=== PATIENT | female | born 1960 | race Caucasian/White ===

== ENCOUNTER 2017-01-07 06:32 | Inpatient (IN) ==
[2017-01-07] MEDS ORDERED: ZOFRAN IV ONE (06:53)
[2017-01-07] MEDS ORDERED: APRESOLINE IV ONE (06:54)
[2017-01-07] MEDS ORDERED: DUONEB (A & A) INH ONE (07:03)
[2017-01-07 07:05] LABS: BASO% 0.5 % (0.0-0.8); EOS# 0.02 X1000 (0.0-0.7); EOS% 0.2 % (0.0-10.0); HEMATOCRIT 36.1 % (37.0-47.0); HEMOGLOBIN 11.8 g/dL (12.0-16.0); IMM GRAN# 0.04 X1000 (0.0-0.04); IMM GRAN% 0.3 % (0.0-0.5); LYMPH# 0.54 X1000 (1.2-3.4); LYMPH% 4.5 % (20.5-51.1); MANUAL DIFF NEEDED? NO; MCH 32.2 PG (27-31); MCHC 32.7 g/dL (33-37); MCV 98.4 FL (81-99); MONO# 0.36 X1000 (0.11-0.59); MPV 10.3 FL (7.4-10.4); NEUT% 91.5 % (42.2-75.2); PLT 260 X1000 (130-400); RBC 3.67 XMIL (4.2-5.4)
--- NOTE | 2017-01-07 07:13 | PROVIDER DOCUMENTATION ---
HPI-Abdominal Pain/GI Problem - General Chief Complaint: Nausea/Vomiting Stated Complaint: unsteady gait Time Seen by Provider: 01/07/17 06:34 Source: patient, family Allergies/Adverse Reactions: Patient Allergies Allergy/AdvReac Type Severity Reaction Status Date / Time No Known Allergies Allergy Verified 01/07/17 06:56 Home Medications: Home Medication List Medication Instructions Recorded Confirmed Last Taken Type LISINOpril [Prinivil] 40 mg PO DAILY 05/04/13 01/07/17 01/06/17 History Losartan [Cozaar] 100 mg PO DAILY 05/04/13 01/07/17 01/06/17 History Clonidine [Catapres] 1 tab PO BID 01/07/17 01/07/17 01/06/17 History Nifedipine [Procardia Xl] 30 mg PO DAILY 01/07/17 01/07/17 01/06/17 History Sevelamer Carbonate [Renvela] 800 mg PO TID 01/07/17 01/07/17 01/06/17 History - History of Present Illness-ABD Nature of Presenting Problems: Nausea, vomiting since 3 AM this morning. Pt went to dialysis center and was sent to ER because unsteady gait. Reports SOB and nauseated. BP is high but O2 sat is low in high 80s with 2-3 L NC. Denies F/C/DMII. Pt has been on HD since 4 years ago, Abdominal Pain Onset Location: reports: other (No pain) Pain Radiation: reports: no radiation Quality of Pain: reports: none Severity in ED: reports: moderate Onset/Duration: reports: last night Timing: reports: still present Activities at Onset: reports: none Modifying Factors: improves with: nothing Associated Symptoms: reports: nausea, vomiting, weakness, trouble walking. denies: chest pain, constipation, cough, diaphoresis, diarrhea, headaches Last BM: unsure Dark Stools Present?: reports: none noticed Rectal Bleeding: reports: none Rectal Pain: reports: none # of Vomiting Episodes: 10 Emesis Description: reports: none Bruising or Bleeding Gums?: No Similar Symptoms Previously?: No Recently seen or treated by another doctor?: No Review of Systems - Adult - REVIEW OF SYSTEMS - ADULT Constitutional: reports: no symptoms reported Eyes: reports: no symptoms reported Ears, Nose, Mouth & Throat: reports: no symptoms reported Cardiovascular: reports: no symptoms reported. denies: chest pain, irregular heart rate Respiratory: reports: see HPI, shortness of breath. denies: cough, dyspnea on exertion, pleurisy, wheezing Gastrointestinal: reports: no symptoms reported Genitourinary: reports: no symptoms reported Musculoskeletal: reports: no symptoms reported Integumentary: reports: no symptoms reported Neurological: reports: no symptoms reported Psychiatric: reports: no symptoms reported Endocrine: reports: no symptoms reported Hematologic/Lymphatic: reports: no symptoms reported Allergic/Immunologic: reports: no symptoms reported All Other Systems: Reviewed and Negative Past History - Adult - PAST MEDICAL HISTORY-ADULT Review of Records: reports: Old Records Reviewed, Nursing Assessment Review, Medications Reviewed, Social history reviewed & non-contributory. Physical Exam-General - PHYSICAL EXAM-ADULT Initial Vital Signs Reviewed: Yes - CONSTITUTIONAL General Appearance: alert, no apparent distress, lethargic, other (But cooperative for the exam and answers questions). negative: combative - EYES Eyes: PERRL/EOMI, pink conjunctivae - HEAD, EARS, NOSE, MOUTH & THROAT HENMT: normocephalic/atraumatic, moist mucous membranes - NECK Neck: non-tender, full range of motion - RESPIRATORY Respiratory: chest non-tender, lungs clear, normal breath sounds, no pleuratic chest pain, no respiratory distress, no accessory muscle use. negative: crackles, rales, rhonchi, wheezing, dull on percussion, decreased rate, increased rate - CARDIOVASCULAR Cardiovascular: normal peripheral pulses, regular rate, rhythm - GASTROINTESTINAL (ABDOMEN) Abdominal Exam: normal bowel sounds, non tender, soft, no organomegaly - MUSCULOSKELETAL Back Exam: normal inspection, no CVA tenderness, no vertebral tenderness Extremity: normal range of motion, non-tender, normal inspection, no pedal edema , no calf tenderness. negative: swelling, tenderness - SKIN Integumentary: normal color, normal turgor, warm/dry - NEUROLOGIC Neurologic: no motor/sensory deficits - PSYCHIATRIC Psych/Mental Status: normal mood/affect, normal thought content, normal thought process, oriented x 3 Progress - PLAN OF CARE/RESULTS Progress/Plan/Lab Results: Vital Signs - 8 hr 01/07/17 06:45 Temperature 97.4 F L Pulse Rate 75 Respiratory Rate 18 Blood Pressure 217/102 O2 Sat by Pulse Oximetry 94 L Laboratory Results - last 24 hr 01/07/17 06:45 WBC 11.92 H RBC 3.67 L Hgb 11.8 L Hct 36.1 L MCV 98.4 MCH 32.2 H MCHC 32.7 L RDW Std Deviation 18.2 H Plt Count 260 MPV 10.3 Immature Gran % (Auto) 0.3 Neut % (Auto) 91.5 H Lymph % (Auto) 4.5 L [place] % (Auto) 3.0 Eos % (Auto) 0.2 Baso % (Auto) 0.5 Immature Gran # (Auto) 0.04 Neut # (Auto) 10.90 H Lymph # (Auto) 0.54 L [place] # (Auto) 0.36 Eos # (Auto) 0.02 Baso # (Auto) 0.06 Orders Category Date Time Status Saline Loc DIRECTED Care 01/07/17 06:54 Active NPO Diet 01/07/17 06:54 Active flat [FLAT/UPRIGHT ABD/1 VIEW CHEST] [RAD] Stat Exams 01/07/17 07:03 Ordered ABG [RESP] Routine Lab 01/07/17 07:03 Ordered AMYLASE [CHEM] Stat Lab 01/07/17 06:45 Received CBC WITH ELECTRONIC DIFF [HEME] Stat Lab 01/07/17 06:45 Completed COMPREHENSIVE METABOLIC PANEL [CHEM] Stat Lab 01/07/17 06:45 Received LIPASE [CHEM] Stat Lab 01/07/17 06:45 Received MAGNESIUM [CHEM] Stat Lab 01/07/17 06:45 Received TROPONIN T Stat Lab 01/07/17 07:07 Uncollected URINALYSIS W/POSS RFLX CULT-1 [URINALYSIS] Stat Lab 01/07/17 06:54 Uncollected Albuterol 2.5MG/Ipratrop 0.5MG [Duoneb (A & A)] Med 01/07/17 07:03 Discontinued 3 ml INH NOW ONE Hydralazine [Apresoline] Med 01/07/17 06:54 Discontinued 20 mg IV NOW ONE Ondansetron [Zofran] Med 01/07/17 06:53 Discontinued 8 mg IV NOW ONE Aerosol Treatments Routine Oth 01/07/17 07:04 Active Aerosol Treatments Stat Oth 01/07/17 07:04 Active Result Diagrams: 01/07/17 06:45 01/07/17 06:45 - REASSESSMENT Reassessment #1 Time Reassessed: 07:14 Status: unchanged (SO2=high 80s on 2L NS. Increased to 4 L and called RT for ABG and breathing tx. SO2 increased to 97% on 4L.) - EKG 1 EKG Interpretation (*Must complete 3 of following elements*): Abnormal Rate: 70 Rhythm: NSR [place]: normal QRS: normal [place] Interval: normal - CONSULTS/PCP/HOSPITALIST Notification Time Discussed: :27 Reason/Comments: Admit to Dr. Dennison Consult Disposition: Admit Departure - Departure Time of Disposition Decision: 08:27 DIAGNOSIS: Hypertensive urgency, Nausea & vomiting Chest pain Qualifiers: Chest pain type: unspecified Qualified Code(s): R07.9 - Chest pain, unspecified Disposition: ADMITTED INPATIENT 09 Certified Medical Emergency: Emergent Condition: Stable Referrals and Follow-Ups: Muna Mares [Primary Care Provider] - - Critical Care Note This patient required my direct & personal management of CC.: No
[2017-01-07 07:24] LABS: ALBUMIN 4.3 g/dL (3.5-5.0); POTASSIUM 4.8 mmol/L (3.5-5.1); TOTAL BILIRUBIN 0.38 mg/dL (0.20-1.00)
[2017-01-07 07:29] LABS: ALLEN TEST YES; BE 7.9 mmoll (-3.0-3.0); BLOOD TYPE ARTERIAL; DRAW SITE R RADIAL; PCO2(98.6) 49 mmHg (35-45); PO2(98.6) 73 mmHg (60-100); SAMPLE BLOOD; SAO2 94.1 % (95.0-100.0); THB 11.6 g/dL (11.5-17.4); pH(98.6) 7.44 (7.35-7.45)
[2017-01-07 07:30] LABS: MODALITY CANNULA
--- NOTE | 2017-01-07 07:36 | EKG Report ---
Test Performed on : 01/07/2017 07:17:41 AM Test Reason : SOB Blood Pressure : / mmHG Vent. Rate : 070 BPM Atrial Rate : 070 BPM P-R Int : 180 ms QRS Dur : 098 ms QT Int : 464 ms P-R-T Axes : 068 -14 080 degrees QTc Int : 501 ms Normal sinus rhythm. with sinus arrhythmia. Possible Left atrial enlargement ST \T\ T wave abnormality, consider lateral ischemia Prolonged QT Abnormal ECG When compared with ECG of 10-SEP-2011 13:46, T wave inversion now evident in Anterior leads Unconfirmed Result
[2017-01-07] MEDS ORDERED: NITROGLYCERIN SL PRN (08:11)
[2017-01-07] MEDS ORDERED: NITROGLYCERIN ONE (08:12)
[2017-01-07] MEDS ORDERED: LABETALOL IV ONE (08:25)
[2017-01-07] MEDS: CARDENE 20 MG/NS 20 MG/200 ML PIGGYBACK IV SCH ×4 (09:18→21:20)
[2017-01-07 09:21] LABS: HEMOGLOBIN A1C 6.1 % (4.8-6.0)
--- NOTE | 2017-01-07 09:24 | Diag Imaging Result Document ---
PROCEDURE NAME: FLAT/UPRIGHT ABD/1 VIEW CHEST - 01/07/2017 FRONTAL CHEST X-RAY AND 2 VIEWS OF THE ABDOMEN, 01/07/2017: COMPARISON: 09/10/2011. FINDINGS: There is significant cardiomegaly and pulmonary vascular congestion. There is some early interstitial pulmonary edema as seen by Fito B-lines, primarily on the right side. No pneumothorax or significant effusion. No bowel obstruction or free air. There is some sort of irregular density projecting over the right sacral wing, indeterminate. IMPRESSION: 1. Cardiomegaly and pulmonary edema. 2. Indeterminate dense object projecting over the right sacral wing.
[2017-01-07] MEDS ORDERED: ZOFRAN IV PRN (09:41)
[2017-01-07] MEDS ORDERED: ADALAT CC PO SCH (09:41)
--- NOTE | 2017-01-07 10:29 | HISTORY AND PHYSICAL ---
PRIMARY CARE PHYSICIAN: Dr. Muna Mares. NORMALIZER: Dr. Rios. CHIEF COMPLAINT: Right flank pain. HISTORY OF PRESENT ILLNESS: Ms. Giordano is a 56-year-old female with a history of ESRD followed by Dr. Rios on dialysis Saturday, Saturday, Saturday. Also with a history of hypertension, questionable diabetes, and congestive heart failure - type unknown. She presents with the acute onset of what she calls right kidney pain. She has right flank pain that began last night. Began acutely. This progressed to nausea and vomiting at which point she said she had quite a bit of hematemesis. She describes bright red blood. She was also having generalized abdominal pain and malaise. She denies any fevers but reports chills. She denies any diarrhea. She said when she got to the ER today, she started having some chest pain which she describes as midsternal, nonradiating, and associated with some shortness of breath. She denies any orthopnea or PND. In the ER, she had labs and diagnostics done. She was noted to have mildly elevated white count, blood sugar of 267, and a mildly elevated alkaline phosphatase but otherwise labs are unremarkable. Her blood pressure, however, has been over 220 and has required IV medication for overall reduction in her systolic blood pressure. Given her hypertensive urgency and the fact that she will need Cardene, we are going to put her in the ICU for the first 24 hours. PAST MEDICAL HISTORY: 1. ESRD on hemodialysis Saturday, Saturday, Saturday. 2. Hypertension. 3. Congestive heart failure, type unknown. 4. History of diabetes. Patient reports that she used to have diabetes but was taken off antidiabetic medications by her primary care because her A1c was within normal limits. PAST SURGICAL HISTORY: 1. Left great toe partial amputation secondary to osteomyelitis. 2. Hysterectomy. 3. Appendectomy. SOCIAL HISTORY: Patient is . She has a remote history of nicotine dependence. She denies alcohol or drug use. FAMILY HISTORY: Father at 75 years old with an [place]. Mother is still alive and she has ESRD. REVIEW OF SYSTEMS: A 14 point review of systems obtained and found to be negative with the exception of the HPI. ALLERGIES: No known drug allergies. HOME MEDICATIONS: Clonidine 0.2 mg b.i.d., Prinivil 40 mg daily, Cozaar 100 mg daily, Procardia XL 30 mg daily, Renvela 800 mg p.o. t.i.d. PHYSICAL EXAMINATION: VITAL SIGNS: Blood pressure is 176/75, heart rate 76, respiratory rate 22, O2 saturation 97% on nasal cannula. Temperature is 97.4 degrees. GENERAL: This is a well-developed, well-nourished, 56-year-old female lying in a hospital bed in mild distress. NEUROLOGIC: The patient is awake, alert, and oriented. She follows commands without focal deficits. HEENT: Head is atraumatic and normocephalic. Her pupils are equal, round, and reactive to light. Oral mucosa is moist. Trachea is midline. Neck is supple. There is no JVD. CHEST: Crackles bibasilarly. CV: Regular rate and rhythm. No appreciable murmurs, gallops, clicks, or rubs. GI: Diffuse tenderness in all 4 quadrants. Bowel sounds are hypoactive. Overall, belly is soft and nondistended. EXTREMITIES: Without edema, clubbing, or cyanosis. Pulses are diminished but palpable bilaterally. DIAGNOSTIC DATA: WBC 11.92, hemoglobin 11.8, hematocrit 36.1, platelet count 260,000, ABG on 2 L, pH 7.44, CO2 49, O2 73, bicarb 31. Sodium 142, potassium 4.8, chloride 91, CO2 29, anion gap 22, BUN 58, creatinine 9.4, glucose 267, calcium 9, magnesium 2.9. Bilirubin 0.38, AST 12, ALT 9, alkaline phosphatase 130. Troponin negative. Lipase 22. Chest and abdomen x-ray shows cardiomegaly and pulmonary edema, and a dense object projecting over the right sacral wing. EKG shows normal sinus rhythm with a first-degree AV block and nonspecific T-wave changes in the high lateral leads. ASSESSMENT AND PLAN: 1. Right flank pain/abdominal pain/hematemesis: We are going to check a CT of the abdomen and pelvis, and consult with Dr. Hightower with gastroenterology. We will the patient on intravenous Protonix twice a day and add intravenous Zofran. We are also going to check a straight catheter urinalysis as the patient reports that she is still making urine. We will also keep the patient nothing per oral. 2. Chest pain: Atypical. We will continue to trend cardiac enzymes and check an echocardiogram. Continue her home medications with the exception of aspirin, given her bleeding. 3. Congestive heart failure: Patient will be dialyzed today per Dr. Keith. We are going to check an echocardiogram to evaluate left ventricular structure and function, as well as her valves. We will continue her home medications as well. Follow strict intakes and outputs, daily weights, and rule out myocardial infarction with cardiac enzymes. 4. Hypertensive urgency: Patient will be placed in the intensive care unit with Cardene drip if needed. We will also add as needed labetalol and hydralazine intravenous. 5. Hyperglycemia: We will check a hemoglobin A1c and treat accordingly. 6. Deep vein thrombosis prophylaxis will be provided with sequential compression devices and TEDs. 7. Further recommendations to follow. Dictated by ADOLFO Mathews for Hans Loo MD cc: ADOLFO Mathews MD Amy Makemson
--- NOTE | 2017-01-07 11:19 | Diag Imaging Result Document ---
PROCEDURE NAME: ABDOMEN/PELVIS W/O CONTRAST - 01/07/2017 CT UROGRAM WITHOUT CONTRAST: FINDINGS: There is pleural fluid bilaterally much more on the right than the left with some compressive atelectasis in both lower lobes. There are no previous studies. There is extensive arteriosclerosis including renal vessels. No evidence of hydronephrosis or definite stones is present. There are some phleboliths in the gonadal vein on the right. There are no gallstones. The spleen and adrenal glands are not enlarged. There is no evidence of bowel obstruction. There is some stool in the ascending colon. There is no evidence of appendicitis. A small amount of free fluid is present in the pelvis. There has been hysterectomy. There is some heterotopic bone formation adjacent to the ischial tuberosities. No acute bony abnormalities are demonstrated. IMPRESSION: Pleural effusions and basilar atelectasis. No definite evidence of acute disease.
[2017-01-07] MEDS: PRINIVIL PO SCH (11:26)
[2017-01-07] MEDS: CATAPRES PO SCH ×3 (11:26→23:15)
[2017-01-07] MEDS: COZAAR PO SCH (11:26)
[2017-01-07] MEDS ORDERED: HEPARIN IV PRN (11:37)
[2017-01-07] MEDS ORDERED: TIGHT: 0.2 ML/HR MISC PRN (11:37)
[2017-01-07] MEDS ORDERED: NS 2,000 ML MISC PRN (11:37)
[2017-01-07] MEDS: SODIUM CHLORIDE 0.9% INJ SCH ×2 (12:47→21:46)
[2017-01-07] MEDS: PROTONIX IV SCH ×2 (12:47→21:46)
[2017-01-07] MEDS: RENAGEL PO SCH ×2 (12:55→17:36)
[2017-01-07] MEDS ORDERED: NS 2,000 ML ONE (13:03)
[2017-01-07 17:26] LABS: URINE MICRO REVIEW NEEDED? NO; URINE SOURCE CLEAN CATCH
[2017-01-07 17:30] LABS: BILIRUBIN URINE NEGATIVE (NEGATIVE); BLOOD URINE NEGATIVE (NEGATIVE); COLOR YELLOW; GLUCOSE URINE 500 mg/dL (NEGATIVE); LEUKOCYTES URINE TRACE (NEGATIVE); NITRITE URINE NEGATIVE (NEGATIVE); PH URINE 8.5; PROTEIN URINE 600 mg/dL (NEGATIVE); SP GRAVITY URINE 1.011; TURBIDITY URINE CLEAR (CLEAR); UR EPITHELIAL CELLS <10 /HPF (<10); URINE BACTERIA 2+ /HPF; URINE CULTURE NEEDED? YES; URINE RBC <10 /HPF (<10); UROBILINOGEN URINE NORMAL (NORMAL)
--- NOTE | 2017-01-07 18:17 | ECHO REPORT ---
ORDER DATE: 01/07/2017 ECHOCARDIOGRAM: MEASUREMENTS: Left ventricular end-diastolic diameter 4.8, end systolic diameter 3.1, posterior wall thickness 1.1, septal thickness 1.1, left atrium 5.5, aortic root 2.5. SUMMARY: 1. Fair quality study. 2. Aortic valve is trileaflet and opens normally on 2-dimensional images. Mild mitral annular calcification is demonstrated with mild mitral regurgitation. Tricuspid valve and pulmonic valve are without evidence of structural abnormality with mild tricuspid regurgitation. Estimated systolic PA pressure by Doppler is 55-60 mmHg suggesting moderate pulmonary hypertension. Aortic root is normal in size. 3. Normal left ventricular dimensions suggested. Estimated left ventricular ejection fraction is 60-65%. No regional wall motion abnormalities are evident. Doppler suggests grade 1 left ventricular diastolic dysfunction. Left atrium is moderately enlarged. Right atrium and right ventricle are normal in size with normal right ventricular systolic function. 4. No pericardial effusion. 5. Appearance of inferior vena cava suggests normal central venous pressure. 6. Sinus rhythm during study. CONCLUSIONS: 1. Mild mitral annular calcification with mild mitral regurgitation. 2. Mild tricuspid regurgitation with moderate pulmonary hypertension by Doppler. 3. Estimated left ventricular ejection fraction 60%-65%. 4. Grade 1 left ventricular diastolic dysfunction suggested. 5. Moderate left atrial enlargement. cc: MD Moses Rodriguez CRNP
--- NOTE | 2017-01-07 18:19 | CONSULTATION ---
DATE OF CONSULTATION: 01/07/2017 REASON FOR ADMISSION: Right flank pain and elevated blood pressure. REASON FOR CONSULTATION: End-stage renal disease with assistance for medical management. CONSULTING PHYSICIAN: Hans Loo MD. HISTORY OF PRESENT ILLNESS: Ms. Giordano is a 56-year-old, female who dialyzes at the [facility] in [place] on spring, on Saturday, Saturday, Saturday. Her primary carriage feeder is Dr. Rios. She has just transferred over from [place] to the [facility]. She states that she has a strong family history of kidney disease with her mother getting ready to also go on dialysis. She states that she has a history of hypertension, questionable diabetes that has improved when she started dialysis, congestive heart failure and a history of end-stage renal disease. Patient states that she has been on dialysis for 3 years. She is followed by Dr. Rios from [place]. She stated that she started with abdominal pain, right upper flank associated with nausea and vomiting yesterday evening. This became acute. Subsequently family has brought her to [facility]'s Emergency Department. She has continued to have nausea and vomiting with hematemesis noted. She describes this as bright red blood. She has general abdominal pain. She states that she has chills. She denies fever. No diarrhea. Pain to her right mid upper quadrant upon palpation. She denies chest pain or increased work of breathing. No palpitations. It was found that she has mildly elevated WBCs with blood sugars elevated in the 260 range. Her systolic pressures have been in the 200/100 range. She was given hydralazine and labetalol along with nitroglycerin in the emergency department. At this time it was currently in the 170s/90 range. Her remains at her bedside. She appears in some mild distress. PAST MEDICAL HISTORY: End-stage renal disease with hemodialysis on Saturday, Saturday, Saturday at the [facility]; hypertension; congestive heart failure type unknown; history of diabetes with no anti-diabetic medications. PAST SURGICAL HISTORY: Left great toe partial amputation secondary to osteomyelitis, hysterectomy, appendectomy and AV fistula noted to the left upper arm. SOCIAL HISTORY: She is . She has a remote history of nicotine dependence. She has not smoked for several years now. She denies any alcohol or illicit drug use. FAMILY HISTORY: Father is at 75 years old from an [place]. Mother is still alive with end- stage renal disease along with several siblings and an aunt with acute kidney injury and CKD. CURRENT ALLERGIES: No known drug allergies. HOME MEDICATIONS: Reviewed. Clonidine, Prinivil, Cozaar, Procardia XL, and Renvela. REVIEW OF SYSTEMS: Review of systems x10 with pertinent positives listed above in the HPI. MOST RECENT VITAL SIGNS: Previous temperature is 98.6 degrees, last taken 97.4. Blood pressure 176/75, heart rate 76, respirations 22. She is on O2 at 2 L nasal cannula, last recorded saturation is 97%. She has had 0 recorded in or out. LABS: Sodium of 142, potassium 4.8, chloride 91, CO2 29, BUN 58, creatinine 9.4 , glucose 267. She has an anion gap of 22, calcium 9, albumin 4.3, TSH 1.47. White count 11.92 , hemoglobin 11.8, hematocrit 36.1, with a platelet count of 260,000. DIAGNOSTIC: Patient had a CT of the abdomen and pelvis without contrast. This indicates pleural effusions with bibasilar atelectasis, no acute disease process noted. Chest x-ray shows pulmonary edema, cardiomegaly and intermittent dense irregularity over the right sacral wing. PHYSICAL EXAMINATION: General: This is a 56-year-old, female. She is currently resting on a stretcher. She continues in the ER. She has an IV in place. She has no infusion. She has been given hydralazine and labetalol IV along with nitroglycerin. Her blood pressure is now slightly in control and improved since her admission. She continues with abdominal pain. She continues with nausea. She is in mild distress. HEENT: Normocephalic, atraumatic. Conjunctivae pale. She has RUBÉN. Mucous membranes moist. Neck: Supple. Trachea midline. No JVD. Cardiovascular: Regular rate and rhythm. She is without murmur or gallop. Lungs: Clear to auscultation anterior with faint bibasilar crackles. She remains on O2, equal excursion. Abdomen: Diffuse tenderness noted to all 4 quadrants. Upper right is greater than elsewhere. She has positive bowel sounds. Genitourinary: Not inspected. Patient has minimal void with continued dialysis assist. Extremities: She is without edema. She has an AV fistula noted to the left upper arm. No clubbing or cyanosis. Neurological: She is alert and oriented x3. ASSESSMENT AND PLAN: 1. End-stage renal disease. This is patient's routine dialysis day. She had been at her dialysis clinic for treatment for approximately less than 1 hour and was sent to the emergency department. We will plan for dialysis later today. We will place her on a 2 K bath. She is to dialyze for 3.5 hours. We will attempt to pull patient to her dry weight. We will also attempt to get her old records from [facility]. 2. Right flank pain and abdominal pain with hematemesis. CT of the abdomen and pelvis were centrally negative. Patient was started on IV Protonix. Dr. Hightower has been consulted. Zofran p.r.n. has been ordered, followed by the hospitalist. 3. Hypertensive urgency. Patient has been placed in intensive care. She is now on a Cardene drip. This is being followed by primary care team. 4. Electrolytes, these are stable. 5. Acid-base balance. Patient has mild anion gap acidosis. This is more than likely secondary to #2. We will continue to keep an eye on and monitor. 6. Anemia. This remains close to target. 7. Elevated WBCs. We will continue to monitor. No indications for intervention at this time prophylactically. I would to thank you for allowing us to follow with this patient. Seen, data reviewed, discussed with Lora Montano on 01/07/17. I agree with the above assessment and plan of care. rg Dictated by ADOLFO House for Shashank Keith MD cc: ADOLFO House MD [facility]
--- NOTE | 2017-01-07 22:42 | CONSULTATION ---
DATE OF CONSULTATION: 01/07/2017 REFERRING PHYSICIAN: Hans Loo M.D. PRIMARY CARE PROVIDER: Muna Mares M.D. PRIMARY REST ROOM MATRON: Sandoval Rios M.D. INDICATION FOR CONSULTATION: Witnessed hematemesis. HISTORY OF PRESENT ILLNESS: The patient is a 56-year-old, white female with a history of end- stage renal disease who is on hemodialysis every Saturday, Saturday and Saturday managed by Dr. Rios. She presented with right flank pain that was followed by a witnessed hematemesis in the emergency room. Because of the hematemesis, we were asked to participate in her care. However, she presented with hypertensive urgency and required urgent hemodialysis. Since her hospitalization, she has had emesis but no hematemesis. PAST MEDICAL HISTORY: 1. End-stage renal disease on hemodialysis q. Saturday, Saturday, Saturday. 2. Hypertension. 3. Diabetes. 4. Congestive heart failure. 5. Osteomyelitis. PAST SURGICAL HISTORY: 1. Left great toe partial amputation secondary to osteomyelitis. 2. Hysterectomy. 3. Appendectomy. SOCIAL HISTORY: Patient is . She denies alcohol, recreational drug use. She previously smoked. FAMILY HISTORY: Remarkable in that her father of myocardial infarction. Her mother is alive with end-stage renal disease. REVIEW OF SYSTEMS: Negative for chest pain and shortness of breath. She denies epigastric pain, nausea, or vomiting this afternoon. She had both nausea with vomiting and epigastric discomfort as well as right flank pain at the onset of symptoms at 2 o'clock this morning. MEDICATION ALLERGIES: None. HOME MEDICATIONS: 1. Clonidine. 2. Prinivil. 3. Cozaar. 4. Procardia. 5. Renvela. PHYSICAL EXAMINATION: General: On examination, she is resting comfortably in the bed. She is in no acute distress. Vital Signs: Blood pressure is 174/78, pulse 98, respirations 17, temperature of 98.4 degrees. HEENT: Negative for jaundice. Her oropharyngeal mucosa membranes are dry. Her chest is clear to auscultation with normal respiratory effort. Cardiovascular Examination: Reveals regular rate and rhythm with no gallops or rubs. Abdominal Examination: Reveals normoactive bowel sounds. The abdomen is soft, nontender, with no rebound or guarding. Extremities: Bilaterally are negative for cyanosis, clubbing, or edema. OBJECTIVE DATA: Hemoglobin is 11.8 with hematocrit of 36.1 and a white count 11.92. She has 260,000 platelets. On blood gas, her pH is 7.44, pCO2 of 49, PO2 of 73, 36% FiO2. Her sodium is 142, potassium 4.8, chloride 91, CO2 29, BUN 58, creatinine 9.4 with a glucose of 267. Her hemoglobin A1c is 6.1. Calcium is 9.0, magnesium 2.9, total bilirubin 0.38, AST 12, ALT 9, alkaline phosphatase 130, total protein 8.0 with an albumin of 4.3. Her CK is 54 with a troponin of 0.028. Her amylase is 120 with a lipase of 22 and a TSH of 1.47. Her urinalysis is remarkable for trace leukocytes with 10-20 white blood cells per high-power field. IMPRESSION: 1. Hematemesis. 2. Elevated alkaline phosphatase. 3. Anemia. RECOMMENDATIONS: 1. I recommend that she undergo an EGD for further evaluation of the hematemesis. I will place the patient on the schedule for tomorrow. 2. Continue Protonix 40 mg IV q.12 hours. However, I would begin a Protonix drip if her hemoglobin drops. 3. Additional recommendations to follow based on her clinical course and endoscopic findings. cc: MD Hans Owens MD David G. Bains Amy Makemson MTDD
[2017-01-07] MEDS ORDERED: TYLENOL PO PRN (23:03)
[2017-01-08] MEDS: CARDENE 20 MG/NS 20 MG/200 ML PIGGYBACK IV SCH ×6 (02:18→21:29)
[2017-01-08] MEDS: MORPHINE IV PRN (04:46)
[2017-01-08 05:36] LABS: HEMATOCRIT 33.6 % (37.0-47.0); HEMOGLOBIN 10.7 g/dL (12.0-16.0); MCH 31.8 PG (27-31); MCHC 31.8 g/dL (33-37); MPV 10.3 FL (7.4-10.4); RBC 3.36 XMIL (4.2-5.4)
[2017-01-08 05:44] LABS: INR 1.01; PROTIME 10.6 Seconds (9.2-11.7)
[2017-01-08 06:00] LABS: HDL 70 mg/dL (45-65); LDL 78 mg/dL; TRIGLYCERIDES 164 mg/dL (35-135); VLDL 33 mg/dL
--- NOTE | 2017-01-08 10:23 | PROGRESS NOTE ---
DATE: 01/08/2017 SUBJECTIVE: She is much better today. She did have an episode of hematemesis and there is a planned upper endoscopy today. No chest pain, palpitations, or shortness of breath. She describes right lower quadrant pain that was dull and achy in nature, and constant for about 1 hour. It was associated with vomiting but no diarrhea. No radiation of the pain. She has never had kidney stones before. This occurred at home and has not recurred. OBJECTIVE: Vital Signs: Blood pressure 138/57, heart rate 73, respirations 12, afebrile. Intake 1.2 L. Output 2.2 L. Physical Examination: General: Pleasant, middle-aged woman, no acute distress. Skin: Warm and dry. HEENT: Conjunctivae are pink. Pupils are equal. Neck: Neck veins are not distended. Heart: Regular. A venous hum is audible across the precordium. Lungs: Have equal breath sounds. No crackles or wheezes. Abdomen: Soft, nontender. Bowel sounds present. Extremities: Have no edema, clubbing, or cyanosis. Laboratory Data: Hemoglobin 10.7. IMPRESSION: 1. Hypertensive encephalopathy, resolved. Okay to transition back to her oral regimen at this time. Those medications have been ordered by the primary team. I will increase her nifedipine to 60 mg. Continue others as ordered. 2. Hematemesis. Esophagogastroduodenoscopy today. 3. Electrolytes. No new data. 4. Acid base. No new data. cc: Shashank Keith MD
--- NOTE | 2017-01-08 11:19 | PROGRESS NOTE ---
DATE: 01/08/2017 Today Ms. Giordano refers to be doing a whole lot better. Denies any more abdominal pain or nausea, vomiting. OBJECTIVE: Vital signs: Blood pressure is 138/57, pulse of 73, respirations 12, temperature 98.2 degrees. General: Ms. Giordano is a 56-year-old female. She is in bed. She did not seem to be in any remarkable distress. HEENT: Mucosa is pink and moist. Anicteric. Acyanotic. Neck: Supple. Chest: Good air entry bilaterally. Few bibasilar crepitations. Cardiovascular: Regular rate and rhythm. There is about 2/6 mid parasternal murmur that seems to be increasing with expiration. [employer]: Patient is alert and oriented x4. There is no focal neurological deficit. Musculoskeletal: There is a fistula on the left arm for dialysis. LABORATORY DATA: WBC is 10.63, hemoglobin is 10.7, platelet count of 338,000. Chemistry reviewed. None for today. Lipid panel is reviewed. CURRENT MEDICATIONS INCLUDE: Klonopin, lisinopril, Cozaar, nicardipine drip. Patient is actually currently just on the nicardipine drip until after the procedure. ASSESSMENT: 1. Nausea and vomiting with some hematemesis. Unclear the etiology. We are pending EGD today. 2. Severe uncontrolled hypertension on presentation. This is much better on the drip. Will restart the patient on p.o. medications after the procedure. 3. Diabetic mellitus. 4. Diastolic dysfunction noted on echo. PLAN: Ms. Giordano is relatively stable. She is going to get the EGD today and once that is done, we will restart her on her p.o. medications. If she continues to be stable we will discontinue the Cardene drip and transfer her to the floor. Plan her discharge hopefully for tomorrow. cc: Lee Maier MD
[2017-01-08] MEDS ORDERED: DIPRIVAN 1% ONE (13:13)
[2017-01-08] MEDS ORDERED: FENTANYL ONE (13:13)
[2017-01-08] MEDS ORDERED: XYLOCAINE-MPF 2% ONE (13:23)
[2017-01-08] MEDS: RENAGEL PO SCH ×3 (13:33→17:41)
[2017-01-08] MEDS: CATAPRES PO SCH ×2 (13:34→20:17)
[2017-01-08] MEDS: PROTONIX IV SCH ×2 (13:34→20:30)
[2017-01-08] MEDS: PRINIVIL PO SCH (13:43)
[2017-01-08] MEDS: COZAAR PO SCH (13:44)
[2017-01-08] MEDS: CARAFATE LIQUID PO SCH ×2 (13:44→20:17)
[2017-01-08] MEDS: SODIUM CHLORIDE 0.9% INJ SCH (20:30)
[2017-01-09] MEDS: CARDENE 20 MG/NS 20 MG/200 ML PIGGYBACK IV SCH ×3 (00:06→06:29)
--- NOTE | 2017-01-09 02:00 | OPERATIVE NOTE ---
PROCEDURE DATE: 01/08/2017 REFERRING PHYSICIAN: Hans Loo M.D. INDICATION FOR PROCEDURE: 1. Nausea with vomiting. 2. Witnessed hematemesis on admission. PROCEDURE PERFORMED: Esophagogastroduodenoscopy. CONSENT: Informed consent was obtained from the patient prior to the procedure. The risks, benefits, and alternatives were discussed. MEDICATION: The patient received monitored anesthesia care. PERFORMING PHYSICIAN: Bryanna Hightower M.D. ASSISTANTS: 1. ST. Nicole 2. [place] RN. 3. Yocasta Sanchez CRNA. 4. Jonas Jones M.D. (anesthesia). COMPLICATIONS: There were no complications. ESTIMATED BLOOD LOSS: 1 to 2 mL. SPECIMENS REMOVED: 1. Duodenal biopsy. 2. Gastric biopsy. FINDINGS: After sedation was achieved, the upper endoscope was inserted to the third portion of the duodenum. The hypopharynx and tubular esophagus appeared normal to the GE junction. At the GE junction, there were a few scattered erosions consistent with grade A erosive esophagitis. The GE junction was measured at 40 cm from the incisors. There was a hiatal hernia that spanned from 40-45 cm. In the gastric lumen, there was erosive gastritis in the antrum, fundus, and body. In addition, there was a single ulcer in the body that was serpiginous, approximately 5-7 mm long. There were 2 antral ulcers that were more circumferential, with a whitish base, that were 5-10 mm in size. The pylorus appeared endoscopically normal. In the duodenal bulb, and continuing to the third portion of the duodenum, was severe acute duodenitis, with multiple erosions. Biopsies were taken from the duodenal and gastric mucosa. The lumen was then decompressed and the scope was removed without incident. IMPRESSION: 1. Grade A erosive esophagitis. 2. Hiatal hernia. 3. Erosive gastritis. 4. Gastric ulcer in the body. 5. Two gastric ulcers in the antrum. 6. Erosive gastritis in the fundus. 7. Severe duodenitis. 8. No evidence of esophageal or gastric varices. 9. No evidence of Reinoso's esophagus. RECOMMENDATION: 1. Await biopsy results. 2. Continue Protonix 40 mg IV q.12 hours. 3. Begin Carafate 1 g p.o. 4 times a day for 1 month only, in light of her end- stage renal disease. 4. As an outpatient, I recommend giving her twice a day dosing on her PPI therapy for 6 weeks, and then reducing the dose to once a day. 5. At some point in the future, she will need a screening colonoscopy as an outpatient. 6. We will have the patient return to clinic in 4-6 weeks to assess interval progress. cc: MD Muna Owens MD Reginald D. Gladish, MD David G. Bains, MD MTDD
[2017-01-09] MEDS: CARAFATE LIQUID PO SCH ×4 (02:53→20:40)
[2017-01-09 05:18] LABS: HEMATOCRIT 32.9 % (37.0-47.0); HEMOGLOBIN 10.3 g/dL (12.0-16.0); MCH 31.9 PG (27-31); MCHC 31.3 g/dL (33-37); MCV 101.9 FL (81-99); MPV 9.6 FL (7.4-10.4); RBC 3.23 XMIL (4.2-5.4)
[2017-01-09 05:31] LABS: ALBUMIN 3.7 g/dL (3.5-5.0); CALCIUM 8.5 mg/dL (8.8-10.2); POTASSIUM 4.4 mmol/L (3.5-5.1)
[2017-01-09] MEDS ORDERED: NS 2,000 ML MISC PRN (07:08)
[2017-01-09] MEDS ORDERED: HEPARIN IV PRN (07:08)
[2017-01-09] MEDS ORDERED: TIGHT: 0.2 ML/HR MISC PRN (07:08)
[2017-01-09] MEDS: RENAGEL PO SCH ×3 (07:38→16:03)
[2017-01-09] MEDS: ADALAT CC PO SCH ×2 (07:38→09:30)
[2017-01-09] MEDS: PRINIVIL PO SCH ×2 (07:39→09:31)
[2017-01-09] MEDS: CATAPRES PO SCH ×3 (07:39→20:39)
[2017-01-09] MEDS: COZAAR PO SCH ×2 (07:39→09:30)
[2017-01-09] MEDS: PROTONIX IV SCH (09:30)
--- NOTE | 2017-01-09 10:42 | PROGRESS NOTE ---
DATE: 01/09/2017 SUBJECTIVE: She is feeling well today. No nausea or vomiting. Her blood pressure has been better and she is off of IV nicardipine. OBJECTIVE: Vital Signs: Blood pressure 129/61, heart rate 73, respiration 19, afebrile. Intake 2.3 L. Output 75 mL. General Appearance: No acute distress. Skin: Warm and dry. Eyes: Conjunctivae are pink. Neck: Neck veins are not distended. Trachea is midline. Heart: Regular with systolic murmur and a venous hum. Lungs: Have equal breath sounds. No crackles or wheezes. Abdomen: Soft, nontender. Bowel sounds are present. Extremities: Have no edema, clubbing, or cyanosis. LABORATORY DATA: Sodium 137, potassium 4.4, chloride 97, bicarbonate 25. BUN 46, creatinine 8.9. Hemoglobin 10.3. IMPRESSION: 1. Hypertensive crisis. Blood pressure is well controlled now. She is on her routine home medications, with the exception that I have increased her nifedipine dose from 30 mg to 60 mg. 2. End-stage renal disease. She is receiving her routine hemodialysis today. 3. Electrolytes/acid base/anemia, all in target. 4. Nausea and vomiting. She has gastritis by esophagogastroduodenoscopy. She is currently on pantoprazole and sucralfate. I have communicated with her outpatient physician so that he can monitor her . cc: Shashank Keith MD
--- NOTE | 2017-01-09 11:07 | PROGRESS NOTE ---
DATE: 01/09/2017 SUBJECTIVE: Today, Ms. Giordano refers to be doing a whole lot better. Denies any hematemesis. No nausea. No vomiting. No chest pain. OBJECTIVE: Vital Signs: Blood pressure is down to 129/61, pulse of 73, respirations are 19, temperature is 98.1 degrees. General Examination: Ms. Giordano is a 56-year-old , female. She is in bed, getting dialysis. Not in any distress. HEENT: Mucosa is pink and moist. Anicteric and acyanotic. Neck: Supple. Chest: Good air entry bilaterally. No crepitations. No rhonchi. Cardiovascular: Regular rate and rhythm. There is a 2/6 TR murmur as well as a PS murmur. Abdomen: Soft, nontender. Extremities: No pedal edema. There is an AV fistula in the left arm for dialysis. Laboratory Data: WBC is 9.76, hemoglobin is 10.3, platelet count is 392,000. Chemistries reviewed. Completely normal except for the renal function consistent with end- stage renal disease. A urinalysis which was done showed gram-negative óscar but I think the patient does not have any urine symptoms. ASSESSMENT: 1. Nausea and vomiting with hematemesis. Patient had an esophagogastroduodenoscopy yesterday which showed some erosive gastritis and gastric ulcers, and severe duodenitis. Patient is currently on twice a day Protonix which we are going to switch to oral and Carafate. 2. Severe uncontrolled hypertension on presentation. The patient was started on a Cardene drip. The patient is now using oral medications. We will transfer her from the intensive care unit to a regular floor. 3. Diabetes mellitus, stable. 4. Diastolic dysfunction noted on echocardiogram. We will continue aggressively treating the blood pressure. 5. Asymptomatic GNR bacteruria. Patient has no symptoms. No need to treat at this time. PLAN: In general, I think Ms. Giordano is relatively stable. We are going to transfer her from the ICU to a regular floor. We will continue with the p.o. medications. We will switch her PPI to also p.o. Hopefully, if she continues to be stable and the blood pressure controlled, we will be able to discharge her 1st thing in the morning. cc: Lee Maier MD [facility]
[2017-01-09] MEDS: PROTONIX PO SCH (20:39)
[2017-01-09] MEDS: MORPHINE IV PRN (23:18)
[2017-01-10] MEDS: CARAFATE LIQUID PO SCH ×3 (03:00→14:33)
[2017-01-10 06:43] LABS: HEMATOCRIT 32.6 % (37.0-47.0); HEMOGLOBIN 10.4 g/dL (12.0-16.0); MCH 32.3 PG (27-31); MCHC 31.9 g/dL (33-37); MCV 101.2 FL (81-99); MPV 9.6 FL (7.4-10.4); RBC 3.22 XMIL (4.2-5.4)
[2017-01-10 07:01] LABS: ALBUMIN 3.7 g/dL (3.5-5.0); CALCIUM 8.4 mg/dL (8.8-10.2); POTASSIUM 4.2 mmol/L (3.5-5.1)
[2017-01-10] MEDS: COZAAR PO SCH (08:15)
[2017-01-10] MEDS: ADALAT CC PO SCH (08:16)
[2017-01-10] MEDS: PRINIVIL PO SCH (08:16)
[2017-01-10] MEDS: PROTONIX PO SCH (08:16)
[2017-01-10] MEDS: RENAGEL PO SCH ×2 (08:19→12:17)
[2017-01-10] MEDS: CATAPRES PO SCH (08:19)
[2017-01-10 09:15] VITALS: BP 174/69
--- NOTE | 2017-01-10 11:08 | PROGRESS NOTE ---
DATE: 01/10/2017 TIME SEEN: 0750. SUBJECTIVE: Ms. Giordano is resting quietly in bed. She states that she is feeling great. She denies chest pain or increased work of breathing. OBJECTIVE: Vital Signs: Most recent vital signs are temperature 98.7 degrees, blood pressure 174/69, heart rate 77, respirations 14. She is on room air. Last recorded saturation 97%. She has had 530 in. She has had 2 L off on dialysis. General: This is a 56-year- old female who is currently resting in bed. She is in no acute distress. Skin: Warm and dry. HEENT: Normocephalic, atraumatic. Conjunctivae pink. She has RUBÉN. Mucous membranes moist. Neck: Supple. Trachea midline. No JVD. Cardiovascular: She has regular rate and rhythm. She has a soft systolic murmur with questionable venous hum, as previously noted. Lungs: Clear to auscultation anteriorly. Equal excursion. Abdomen: Large, round, soft, nontender. Positive bowel sounds. Extremities: Have no edema. No clubbing or cyanosis. Genitourinary: Not inspected. Minimal void with dialysis assist. Neurologic: Alert and oriented x3. LABORATORY DATA: Sodium 136, potassium 4.2, chloride 95, CO2 of 29, BUN 25, creatinine 5.3, glucose 114, anion gap of 12, calcium 8.4, phosphorus 3.4, albumin 3.7. White count 9.13, hemoglobin 10.4, hematocrit 32.6, with a platelet count of 390,000. ASSESSMENT AND PLAN: 1. End-stage renal disease. Patient had received her routine dialysis treatment yesterday. No indications for intervention today. 2. Hypertensive crisis. Her blood pressure is now controlled. She has not received her blood pressure medication this morning. She has indicated that she may possibly be discharged home today. 3. Electrolytes, acid-base balance, and anemia. These remain stable. 4. Nausea and vomiting. Patient had gastritis noted on an EGD. She continues on pantoprazole and sucralfate. This is to be followed by her primary care and Gastroenterology. I would to thank you for allowing us to follow with this patient. Seen, data reviewed, discussed with Lora Montano on 01/10/17. I agree with the above assessment and plan of care. rg Dictated by ADOLFO House for Shashank Keith MD cc: ADOLFO House MD [facility]
[2017-01-10] MEDS ORDERED: APRESOLINE PO SCH (13:00)
--- NOTE | 2017-01-10 18:27 | DISCHARGE SUMMARY ---
ADMISSION DATE: 01/07/2017 DISCHARGE DATE: 01/10/2017 CONSULTATIONS: 1. Shashank Keith MD with Nephrology. 2. Bryanna Hightower MD with Gastroenterology. PERTINENT PROCEDURES: 1. Abdomen and pelvis CT showed pleural effusion and bibasilar atelectasis. No definite evidence of acute disease. 2. EGD performed by Dr. Hightower. DISCHARGE DIAGNOSES: 1. Nausea, vomiting with hematemesis. Patient underwent EGD with Dr. Hightower that showed erosive gastritis, gastric ulcers, and severe duodenitis. Patient is on b.i.d. Protonix as well as Carafate. Will follow up with Dr. Hightower. 2. Severe uncontrolled hypertension on presentation. The patient was initially placed on a Cardizem drip. She is now transitioned to oral medications. Stable. 3. Diabetes mellitus. Stable. 4. Systolic dysfunction noted on echo. 5. Asymptomatic GNR bacteremia. The patient received no treatment. HOSPITAL COURSE: Ms. Giordano is a A 56-year-old female with a history of end-stage renal disease followed by Dr. Rios with dialysis on Saturday, Saturday, Saturday, history of hypertension, questionable diabetes, congestive heart failure diastolic. The patient presented with an acute onset of what she called right kidney pain. She had right flank pain that began the night prior to her admission. It began acutely. It progressed to nausea and vomiting at which point she had quite a bit of hematemesis. She described it as bright red blood. She was also having generalized abdominal pain and malaise. She denied any fever, chills or diarrhea. When she reported to the ED she started having some chest pain that she describes as mid substernal, nonradiating and associated with shortness of breath. Laboratory data done in the ED showed a mildly elevated white count, blood sugar of 267, and mildly elevated alkaline phosphatase, but otherwise her labs were unremarkable. Her blood pressure, however, had been over 220 and required IV medication for overall reduction in her systolic blood pressure. She was admitted for hypertensive urgency, placed on a Cardene drip and moved to the ICU. Dr. Keith was consulted secondary to needing hemodialysis. She was continued on her normal schedule with her dialysis. Dr. Hightower was also consulted. She recommended the patient undergo an EGD that showed erosive esophagitis, erosive gastritis, and as well as severe duodenitis. She was continued on Protonix b.i.d. as well as Carafate 4 times a day. As an outpatient, she recommended twice a day dosing on her PPI for 6 weeks, then reduction to 1 daily and Carafate 4 times a day for 1 month only in light of her end-stage renal disease. At some point in the future she will need a screening for colonoscopy as an outpatient. She will have the patient return to the clinic in 4-6 weeks to assess her interval process. Additionally, the patient's blood pressure did improve. She was taken off the Cardene drip. She was initiated back on her p.o. antihypertensive. The patient was set to be transferred to the floor for several days, however, due to bed holding the patient did remain in the ICU, therefore, she is being discharged from the ICU. She is stable for discharge. VITAL SIGNS AT TIME OF DISCHARGE: Temperature 98.5 degrees, heart rate 79, respirations 14, blood pressure 174/69, O2 is 96% on room air. DISCHARGE DIET: Renal. DISCHARGE MEDICATIONS PER DR. PEREZ: 1. Catapres 0.2 mg tab p.o. b.i.d. 2. Apresoline 25 mg p.o. t.i.d. 3. Prinivil 40 mg p.o. daily. 4. Cozaar 100 mg p.o. daily. 5. Adalat CC 60 mg p.o. daily. 6. Protonix 40 mg p.o. b.i.d. 7. Renvela 800 mg p.o. t.i.d. 8. Carafate 1 g p.o. q.6 hours. FOLLOWUP: Patient is being discharged home where she will follow up with her primary care physician, Dr. Muna Mares, in 1 week. As well, continue on her regular scheduled dialysis. Follow up with Dr. Hightower in 4-6 weeks for an outpatient colonoscopy. The patient will continue on her b.i.d. PPI as well as her Carafate q.i.d. The patient can return to the ED for any worsening of symptoms. DISCHARGE TIME: 30 minutes. Dictated by ADOLFO Moss for Lee Perez MD cc: MD Muna Mcneil
== END 2017-01-10 16:04 | disposition home or self-care (01) ==
LOC: ED 06:32 → SUATTDRO 09:12 → ICU 09:12
PROVIDERS: ATTEND Internal Medicine